=== PATIENT | male | born 2000 | race Caucasian/White ===

== ENCOUNTER 2020-08-03 17:40 | Emergency (ER) | payer BC ==
[~2020-08-03 17:40] MED LIST: PERCOCET 5/325 T1 EA PO
[2020-08-03 18:14] LABS: HEMOGLOBIN 15.8 gm/dl (14.0-17.5); RED BLOOD COUNT 5.59 M/UL (4.20-5.50); WHITE BLOOD COUNT 12.9 K/UL (4.5-11.0)
[2020-08-03 18:44] LABS: BUN/CREATININE RATIO 17 (0-10)
[2020-08-03] MEDS ORDERED: BACTROBAN OINT22 GM EXT (20:39)
[2020-08-03] MEDS ORDERED: HYDROCODON-ACE1 EAC4 PO (20:39)
[2020-08-03] MEDS ORDERED: CEPHALEXIN500 MG PO (20:41)
== END 2020-08-03 21:27 | disposition home or self-care (01) ==
LOC: ER1 17:40
PROVIDERS: Emergency Medicine
DX: S51.011A Laceration without foreign body of right elbow, initial encounter (principal); S30.1XXA Contusion of abdominal wall, initial encounter; S80.212A Abrasion, left knee, initial encounter; S80.211A Abrasion, right knee, initial encounter; Z23 Encounter for immunization; V29.40XA Motorcycle driver injured in collision with unspecified motor vehicles in traffic accident, initial encounter; Y92.410 Unspecified street and highway as the place of occurrence of the external cause
CPT/HCPCS: 71046; 73080; 80053; 85025; 90471; 90715; 96374; 96375; 99284; J2270; J2405; Q9967